=== PATIENT | female | born 1955 | race Caucasian/White ===

== ENCOUNTER 2016-10-08 17:34 | Emergency (ER) | payer OTHER | END 2016-10-08 18:41 | disposition home or self-care (01) | LOC: ER 17:34 | DX: T52.4X1A Toxic effect of ketones, accidental (unintentional), initial encounter (principal); R42 Dizziness and giddiness; Y92.009 Unspecified place in unspecified non-institutional (private) residence as the place of occurrence of the external cause; J44.9 Chronic obstructive pulmonary disease, unspecified; F17.210 Nicotine dependence, cigarettes, uncomplicated; Z79.82 Long term (current) use of aspirin; Z79.899 Other long term (current) drug therapy; Z88.5 Allergy status to narcotic agent | CPT/HCPCS: 94664; 99283-25; J8597 ==